=== PATIENT | female | born 1955 | race Caucasian/White ===

== ENCOUNTER 2018-08-21 01:06 | Inpatient (IN) | payer OTHER ==
[~2018-08-21] VITALS: Ht 167.6 cm; Wt 67.0 kg
[2018-08-21] VITALS (8 sets, daily range): BP systolic 131–152; BP diastolic 73–92; PULSE 63–79; RESP 18–20; Ht 167.6 cm; Wt 67.0 kg
[~2018-08-21 01:06] MED LIST: AMOX1TAB10 PO
[2018-08-21] MEDS ORDERED: SOD CHLORIDE 0.9% 1,000 ML IV STA (01:24)
--- NOTE | 2018-08-21 04:02 | ERD ---
ER Documentation Chief Complaint Chief Complaint pt reports r leg and are intermittently numb HPI 63-year-old female with no past medical history presenting with right upper extremity and right lower extremity numbness and heaviness that started at 12 AM. She states that she had multiple falls at home. Her symptoms are intermittent, currently resolved. She denies any associated headache, nausea, vomiting, vision disturbance. No chest pain or shortness of breath. No history of strokes. ROS All systems reviewed and are negative except as per history of present illness. Medications Home Meds Active Scripts Amox Tr/Potassium Clavulanate (Amox Tr-K Clv 875-125 Mg Tab) 1 Tab Tablet, 1 TAB PO BID for 10 Days, TAB Prov:MONAE MANLEY PA-C 01/20/16 Allergies Allergies: Coded Allergies: cephalexin (Verified Allergy, Unknown, 10/22/15) oxycodone (Verified Allergy, Unknown, 10/22/15) PMhx/Soc History of Surgery: Yes (BREAST IMPLANTS, TUBAL LIGATION, VEIN STRIPPING) Anesthesia Reaction: No Hx Neurological Disorder: No Hx Respiratory Disorders: Yes (asthma) Hx Cardiac Disorders: No Hx Psychiatric Problems: No Hx Miscellaneous Medical Probl: No Hx Alcohol Use: Yes (SOCIALLY) Hx Substance Use: No Hx Tobacco Use: Yes Smoking Status: Current every day smoker FmHx mother had strokes Physical Exam Vitals Vital Signs Date Temp Pulse Resp B/P (MAP) Pulse Ox O2 O2 Flow FiO2 Time Delivery Rate 08/21/18 80 20 140/81 99 Room Air 03:30 (100) 08/21/18 98.4 84 16 167/103 100 01:09 (124) Physical Exam Const: No acute distress Head: Atraumatic Eyes: Normal Conjunctiva, PERRLA, EOMI ENT: Normal External Ears, Nose and Mouth. Neck: Full range of motion. No meningismus. Resp: Clear to auscultation bilaterally Cardio: Regular rate and rhythm, no murmurs Abd: Soft, non tender, non distended. Normal bowel sounds Skin: No petechiae or rashes Back: No midline or flank tenderness Ext: No cyanosis, or edema Neur: Awake and alert, oriented x3, cranial nerves intact, strength and sensations intact in all 4 extremities. Normal gait. Psych: Normal Mood and Affect Result Diagram: 08/21/1812708/21/18127 Results 24 hrs Laboratory Tests Test 08/21/18 01:24 08/21/18 01:28 08/21/18 02:15 Bedside Glucose 96 mg/dL White Blood Count 5.3 10^3/ul Red Blood Count 4.59 10^6/ul Hemoglobin 13.5 g/dl Hematocrit 43.4 % Mean Corpuscular Volume 94.6 fl Mean Corpuscular Hemoglobin 29.4 pg Mean Corpuscular 31.1 g/dl Hemoglobin Concent Red Cell Distribution Width 12.6 % Platelet Count 202 10^3/UL Mean Platelet Volume 9.0 fl Immature Granulocytes % 0.400 % Neutrophils % 58.0 % Lymphocytes % 29.9 % Monocytes % 6.8 % Eosinophils % 4.3 % Basophils % 0.6 % Nucleated Red Blood Cells % 0.0 /100WBC Immature Granulocytes # 0.020 10^3/ul Neutrophils # 3.1 10^3/ul Lymphocytes # 1.6 10^3/ul Monocytes # 0.4 10^3/ul Eosinophils # 0.2 10^3/ul Basophils # 0.0 10^3/ul Nucleated Red Blood Cells # 0.0 10^3/ul Prothrombin Time 11.1 Sec Prothrombin Time Ratio 0.9 INR International Normalized Ratio 0.79 Activated Partial Thromboplast 25.3 Sec Time Sodium Level 141 mmol/L Potassium Level 4.2 mmol/L Chloride Level 104 mmol/L Carbon Dioxide Level 32 mmol/L Anion Gap 5 Blood Urea Nitrogen 19 mg/dl Creatinine 0.62 mg/dl Est Glomerular Filtrat Rate mL/min > 60 mL/min Glucose Level 97 mg/dl Calcium Level 9.7 mg/dl Troponin I < 0.012 ng/ml Triglycerides Level 163 mg/dl Cholesterol Level 218 mg/dl LDL Cholesterol, Calculated 83 mg/dl HDL Cholesterol 102 mg/dl Cholesterol/HDL Ratio 2.1 RATIO Ethyl Alcohol Level < 10.0 mg/dl Urine Opiates Screen Negative Urine Barbiturates Negative Urine Amphetamines Screen Negative Urine Benzodiazepines Screen Negative Urine Cocaine Screen Negative Urine Cannabinoids Negative Current Medications Medications Dose Sig/Araseli Start Time Status Last (Trade) Ordered Route PRN Stop Time Admin Dose Reason Admin Sodium 1,000 ml @ Q1H STAT 08/21/18 DC 08/21/18 Chloride 1,000 mls/hr IV 01:24 01:33 08/21/18 02:23 Procedures/MDM EMERGENT LABS AND DIAGNOSTIC STUDIES: Lab Results above were reviewed and interpreted by me. CBC: no anemia or evidence of infection BMP: No evidence of electrolyte abnormality, renal failure, hypoglycemia Troponin within normal limits, not indicative of cardiac ischemia Drug screen negative EtOH negative 12-lead EKG was interpreted by Kwame Olivera MD: Normal Sinus Rhythm with ventricular rate of 87 beats per minute Normal axis Normal intervals No acute ST or T wave changes suggestive of acute ischemia or STEMI. Radiology Results as interpreted by Radiology below were reviewed by Sukhi Olivera MD: CT head shows no acute abnormalities Chest x-ray shows no acute abnormalities Initial Nursing notes reviewed. Previous Medical Records requested via the Electronic Health Record. EMERGENCY DEPARTMENT COURSE / MEDICAL DECISION MAKING: Patient is presenting with intermittent right upper and right lower extremity numbness and weakness. Currently she is asymptomatic so code stroke was not activated. Vitals were notable for hypertension. CT head did not show any acute abnormalities. Labs did not show any significant abnormalities. I am however concerned about TIAs as the patient is a heavy smoker and has signs of hypertension and high cholesterol on workup. I feel she would benefit from adm ission for TIA and stroke workup. Accepting Care Team: Current data and ongoing care discussed. Time: Time of admission Primary Provider: Dr. Rolando Silver Diagnosis: Primary Impression: Right sided weakness Condition: Fair PAZ OLIVERA MD Aug 21, 2018 04:02
[2018-08-21] MEDS ORDERED: ACETAMINOPHEN 325 MG TAB PO PRN ×2 (04:30)
[2018-08-21] MEDS ORDERED: ONDANSETRON 4 MG INJ IV PRN ×2 (04:30)
[2018-08-21] MEDS ORDERED: ASPIRIN 81 MG TAB PO ONE (04:30)
[2018-08-21] MEDS ORDERED: NACL 0.9% 3 ML SYG IV SCH (04:30)
[2018-08-21] MEDS ORDERED: HYDROCODONE/APAP (5/325) TAB PO PRN (04:30)
[2018-08-21] MEDS ORDERED: LABETALOL HCL 20MG INJ IV PRN (04:30)
--- NOTE | 2018-08-21 04:37 | HP ---
Date/Time of Note Date/Time of Note DATE: 08/21/18 TIME: 04:37 Assessment/Plan VTE Prophylaxis Pharmacological prophylaxis: other Lines/Catheters IV Catheter Type (from Nrs): Saline Lock Assessment/Plan Hospital Course Objective Physical exam General: Patient is laying in bed and answers questions appropriately Mentation: Patient is alert and oriented 4, Head: Normocephalic atraumatic, facial droop on the right Eyes: EOMI, pupils reactive to light Neck: Supple, nontender, midline Respiratory: Clear to auscultation bilaterally Cardiovascular: regular rate, no obvious murmurs Gastrointestinal: non-tender to palpation, bowel sounds heard. Neurological: Moves all extremities spontaneously Skin: No new skin lesions Assessment and plan Right upper extremity and lower extremity numbness and heaviness -Possible TIA -Aspirin and statin for now -Neurology consulted, Dr. 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 Disposition -Neurology consulted, workup for TIA. Result Diagram: 08/21/188 08/21/18 0128 Results 24hrs Laboratory Tests Test 08/21/18 01:24 08/21/18 01:28 08/21/18 02:15 Bedside Glucose 96 White Blood Count 5.3 # Red Blood Count 4.59 Hemoglobin 13.5 Hematocrit 43.4 Mean Corpuscular Volume 94.6 Mean Corpuscular Hemoglobin 29.4 Mean Corpuscular Hemoglobin Concent 31.1 L Red Cell Distribution Width 12.6 Platelet Count 202 Mean Platelet Volume 9.0 # Immature Granulocytes % 0.400 Neutrophils % 58.0 Lymphocytes % 29.9 Monocytes % 6.8 Eosinophils % 4.3 Basophils % 0.6 Nucleated Red Blood Cells % 0.0 Immature Granulocytes # 0.020 Neutrophils # 3.1 Lymphocytes # 1.6 Monocytes # 0.4 Eosinophils # 0.2 Basophils # 0.0 Nucleated Red Blood Cells # 0.0 Prothrombin Time 11.1 L Prothrombin Time Ratio 0.9 INR International Normalized Ratio 0.79 Activated Partial Thromboplast Time 25.3 Sodium Level 141 Potassium Level 4.2 Chloride Level 104 Carbon Dioxide Level 32 H Anion Gap 5 Blood Urea Nitrogen 19 Creatinine 0.62 Est Glomerular Filtrat Rate mL/min > 60 Glucose Level 97 Calcium Level 9.7 Troponin I < 0.012 Triglycerides Level 163 H Cholesterol Level 218 H LDL Cholesterol, Calculated 83 HDL Cholesterol 102 H Cholesterol/HDL Ratio 2.1 Ethyl Alcohol Level < 10.0 H Urine Opiates Screen Negative Urine Barbiturates Negative Urine Amphetamines Screen Negative Urine Benzodiazepines Screen Negative Urine Cocaine Screen Negative Urine Cannabinoids Negative HPI/ROS Admit Date/Time Admit Date/Time Hx of Present Illness Patient is a female with past medical history significant for tobacco use who presents to [facility] for sudden onset right upper extremity and right lower extremity paresthesias and heaviness. Patient symptoms have completely resolved at this time. Patient states she woke up in the middle of the morning and instantly felt that her right side was heavy and numb. Patient initially assumed this was just some intermittent numbness from sleeping on her side however when she tried to walk to the bathroom she fell. Patient began to feel little bit better but soon after symptoms return. Patient then went to the ED and currently symptoms have fully resolved and not returned while in the ED. Currently patient's denies chest pain, shortness of breath, headache, abdominal pain, nausea, vomiting, leg pain, arm pain. Patient does have a baseline right facial droop from a severe Nunez palsy for many years ago. Patient does not complain of any facial abnormalities at this time. PMH/Family/Social Past Medical History Medications Current Medications Ondansetron HCl (Zofran Inj) 4 mg ER BRIDGE PRN IV NAUSEA/VOMITING; Start 08/21/18 at 04:30; Stop 08/22/18 at 04:29 Acetaminophen (Tylenol Tab) 650 mg ER BRIDGE PRN PO .MILD PAIN 1-3 OR TEMP; Start 08/21/18 at 04:30; Stop 08/22/18 at 04:29 Aspirin (Aspirin) 162 mg ONCE ONCE PO ; Start 08/21/18 at 04:30; Stop 08/21/18 at 04:31; Status UNV Aspirin (Aspirin) 81 mg DAILY PO ; Start 08/22/18 at 09:00; Status UNV Sodium Chloride 1,000 ml @ 40 mls/hr Q24H IV ; Start 08/21/18 at 04:09; Stop 08/22/18 at 05:08; Status UNV IV Flush (NS 3 ml) 3 ml PER PROTOCOL IV ; Start 08/21/18 at 04:30; Status UNV Ondansetron HCl (Zofran Inj) 4 mg Q6H PRN IV NAUSEA/VOMITING; Start 08/21/18 at 04:30; Status UNV Acetaminophen (Tylenol Tab) 650 mg Q6H PRN PO .PAIN 1-3 OR TEMP; Start 08/21/18 at 04:30; Status UNV Acetaminophen/ Hydrocodone Bitart ([place] (5/325)) 1 tab Q6H PRN PO .PAIN 4-6; Start 08/21/18 at 04:30; Status UNV Coded Allergies: cephalexin (Verified Allergy, Unknown, 10/22/15) oxycodone (Verified Allergy, Unknown, 10/22/15) Social History Smoking Status: Current every day smoker Exam/Review of Systems Vital Signs Vitals Vital Signs Date Temp Pulse Resp B/P (MAP) Pulse Ox O2 O2 Flow FiO2 Time Delivery Rate 08/21/18 98.4 84 16 167/103 100 01:09 (124) ANGEL IVAN Aug 21, 2018 04:37
[2018-08-21] MEDS: SOD CHLORIDE 0.9% 1,000 ML IV SCH (05:32)
--- NOTE | 2018-08-21 12:30 | PN ---
Date/Time of Note Date/Time of Note DATE: 08/21/18 TIME: 12:28 Assessment/Plan VTE Prophylaxis Risk score (from Ns)>0 risk: 2 SCD applied (from [facility]): No SCD contraindicated: low risk/ambulating Pharmacological prophylaxis: NA/contraindicated, LMWH Pharm contraindication: low risk/ambulating Lines/Catheters [facility] Saline Lock Assessment/Plan Hospital Course Assessment plan 1. Suspected TIA, rule out stroke. MRI pending stable follow-up on carotid and echo 2. Tobacco abuse status post counseling offered patch 3. Dyslipidemia, optimize medical therapy with statin repeat cholesterol 1 6 weeks 4. Chronic venous insufficiency insufficiency stasis varicose veins 5. Chronic Nunez's palsy right Subjective: Intermittent right sided numbness heaviness weakness. No loss of speech vision dysphagia dysarthria objective: Vital signs stable sinus rhythm Physical exam No pallor adenopathy mild right droop no carotid bruits Regular no murmur gallop Clear Benign no abdominal bruits No edema Neuro: CN II-XII grossly intact, except for right-sided Nunez's palsy Motor: 5 x 5 x 4 Sensory/reflexes: Symmetrical bilaterally Babinski's: None Cerebellar function test: Finger-nose symmetrical. No dysdiadochokinesis but possibly somewhat easier on the left. Result Diagram: 08/21/188 08/21/18 0128 Results 24hrs Laboratory Tests Test 08/21/18 01:24 08/21/18 01:28 08/21/18 02:15 Bedside Glucose 96 White Blood Count 5.3 # Red Blood Count 4.59 Hemoglobin 13.5 Hematocrit 43.4 Mean Corpuscular Volume 94.6 Mean Corpuscular Hemoglobin 29.4 Mean Corpuscular Hemoglobin Concent 31.1 L Red Cell Distribution Width 12.6 Platelet Count 202 Mean Platelet Volume 9.0 # Immature Granulocytes % 0.400 Neutrophils % 58.0 Lymphocytes % 29.9 Monocytes % 6.8 Eosinophils % 4.3 Basophils % 0.6 Nucleated Red Blood Cells % 0.0 Immature Granulocytes # 0.020 Neutrophils # 3.1 Lymphocytes # 1.6 Monocytes # 0.4 Eosinophils # 0.2 Basophils # 0.0 Nucleated Red Blood Cells # 0.0 Prothrombin Time 11.1 L Prothrombin Time Ratio 0.9 INR International Normalized Ratio 0.79 Activated Partial Thromboplast Time 25.3 Sodium Level 141 Potassium Level 4.2 Chloride Level 104 Carbon Dioxide Level 32 H Anion Gap 5 Blood Urea Nitrogen 19 Creatinine 0.62 Est Glomerular Filtrat Rate mL/min > 60 Glucose Level 97 Calcium Level 9.7 Troponin I < 0.012 Triglycerides Level 163 H Cholesterol Level 218 H LDL Cholesterol, Calculated 83 HDL Cholesterol 102 H Cholesterol/HDL Ratio 2.1 Ethyl Alcohol Level < 10.0 H Urine Opiates Screen Negative Urine Barbiturates Negative Urine Amphetamines Screen Negative Urine Benzodiazepines Screen Negative Urine Cocaine Screen Negative Urine Cannabinoids Negative Exam/Review of Systems Exam Vitals Vital Signs Date Temp Pulse Resp B/P (MAP) Pulse Ox O2 O2 Flow FiO2 Time Delivery Rate 08/21/18 72 12:10 08/21/18 98.1 19 145/73 96 11:56 (97) 08/21/18 Room Air 04:36 Intake and Output 08/20/18 08/20/18 08/21/18 1515:00 23:00 07:00 IntakeIntake Total 300 ml BalanceBalance 300 ml Results Results 24hrs Laboratory Tests Test 08/21/18 01:24 08/21/18 01:28 08/21/18 02:15 Bedside Glucose 96 White Blood Count 5.3 # Red Blood Count 4.59 Hemoglobin 13.5 Hematocrit 43.4 Mean Corpuscular Volume 94.6 Mean Corpuscular Hemoglobin 29.4 Mean Corpuscular Hemoglobin Concent 31.1 L Red Cell Distribution Width 12.6 Platelet Count 202 Mean Platelet Volume 9.0 # Immature Granulocytes % 0.400 Neutrophils % 58.0 Lymphocytes % 29.9 Monocytes % 6.8 Eosinophils % 4.3 Basophils % 0.6 Nucleated Red Blood Cells % 0.0 Immature Granulocytes # 0.020 Neutrophils # 3.1 Lymphocytes # 1.6 Monocytes # 0.4 Eosinophils # 0.2 Basophils # 0.0 Nucleated Red Blood Cells # 0.0 Prothrombin Time 11.1 L Prothrombin Time Ratio 0.9 INR International Normalized Ratio 0.79 Activated Partial Thromboplast Time 25.3 Sodium Level 141 Potassium Level 4.2 Chloride Level 104 Carbon Dioxide Level 32 H Anion Gap 5 Blood Urea Nitrogen 19 Creatinine 0.62 Est Glomerular Filtrat Rate mL/min > 60 Glucose Level 97 Calcium Level 9.7 Troponin I < 0.012 Triglycerides Level 163 H Cholesterol Level 218 H LDL Cholesterol, Calculated 83 HDL Cholesterol 102 H Cholesterol/HDL Ratio 2.1 Ethyl Alcohol Level < 10.0 H Urine Opiates Screen Negative Urine Barbiturates Negative Urine Amphetamines Screen Negative Urine Benzodiazepines Screen Negative Urine Cocaine Screen Negative Urine Cannabinoids Negative Medications Medication Current Medications Ondansetron HCl (Zofran Inj) 4 mg ER BRIDGE PRN IV NAUSEA/VOMITING; Start 08/21/18 at 04:30; Stop 08/22/18 at 04:29 Acetaminophen (Tylenol Tab) 650 mg ER BRIDGE PRN PO .MILD PAIN 1-3 OR TEMP; Start 08/21/18 at 04:30; Stop 08/22/18 at 04:29 Aspirin (Aspirin) 81 mg DAILY PO ; Start 08/22/18 at 09:00 Sodium Chloride 1,000 ml @ 40 mls/hr Q24H IV Last administered on 08/21/18at 05:32; Admin Dose 40 MLS/HR; Start 08/21/18 at 04:09; Stop 08/22/18 at 05:08 IV Flush (NS 3 ml) 3 ml PER PROTOCOL IV ; Start 08/21/18 at 04:30 Ondansetron HCl (Zofran Inj) 4 mg Q6H PRN IV NAUSEA/VOMITING; Start 08/21/18 at 04:30 Acetaminophen (Tylenol Tab) 650 mg Q6H PRN PO .PAIN 1-3 OR TEMP; Start 08/21/18 at 04:30 Acetaminophen/ Hydrocodone Bitart ([place] (5/325)) 1 tab Q6H PRN PO .PAIN 4-6; Start 08/21/18 at 04:30 Atorvastatin Calcium (Lipitor) 80 mg HS PO ; Start 08/21/18 at 21:00 Labetalol HCl (Labetalol) 10 mg Q4H PRN IV sbp> 160; Start 08/21/18 at 04:30 Influenza Virus Vaccine Quadrival (Fluzone) 0.5 ml ONCE ONCE IM* ; Start 08/22/18 at 10:00; Stop 08/22/18 at 10:01 BHAVIN WRIGHT MD Aug 21, 2018 12:30
--- NOTE | 2018-08-21 12:33 | CONS ---
Assessment/Plan Assessment/Plan Hospital Course 63 F smoker, who presents for evaluation of waxing and waning right arm and leg numbness and vertigo...for which neurology is consulted.. Most ominously concerning for stroke.. Head CT is unrevealing.. P: Await MRI brain to evaluate for acute ischemia Agree w/ asa/statin daily for now PT/OT/ST as necessary Permissive HTN for now, pending the above Other medical management and supportive care per primary Will follow clinically to suggest additional neurologic studies as necessary Consultation Date/Type/Reason Admit Date/Time Type of Consult Neurology Reason for Consultation R arm and leg numbness, dizziness Requesting Provider: ANGEL IVAN Date/Time of Note DATE: 08/21/18 TIME: 12:29 Hx of Present Illness Patient is a female with past medical history significant for tobacco use who presents to [facility] [place] for sudden onset right upper extremity and right lower extremity paresthesias and heaviness. Patient symptoms have completely resolved at this time. Patient states she woke up in the middle of the morning and instantly felt that her right side was heavy and numb. Patient initially assumed this was just some intermittent numbness from sleeping on her side however when she tried to walk to the bathroom she fell. Patient began to feel little bit better but soon after symptoms return. Patient then went to the ED and currently symptoms have fully resolved and not returned while in the ED. Currently patient's denies chest pain, shortness of breath, headache, abdominal pain, nausea, vomiting, leg pain, arm pain. Patient does have a baseline right facial droop from a severe Nunez palsy for many years ago. Patient does not complain of any facial abnormalities at this time. 12 PT ROS ow neg Exam/Review of Systems Exam Vitals Vital Signs Date Temp Pulse Resp B/P (MAP) Pulse Ox O2 O2 Flow FiO2 Time Delivery Rate 08/21/18 72 12:10 08/21/18 98.1 145/73 96 11:56 (97) 08/21/18 Room Air 04:36 Intake and Output 08/20/18 08/20/18 08/21/18 1414:59 22:59 06:59 IntakeIntake Total 300 ml BalanceBalance 300 ml Exam PE: Gen Appearance: No Apparent Distress HEENT: Normocephalic Cardiovascular: Regular rate Lungs: Clear bilaterally Abdomen: Soft Extremities: Dry NE: The patient was alert and oriented. Language was normal. Fund of knowledge was normal. Pupils were equal and reactive to light. There was no afferent pupillary defect. Visual cross were normal. Funduscopic examination was limited. Extra-ocular movements were full. Ptosis was absent. There was no nystagmus. Facial sensation was normal. Face was symmetric with normal strength. Hearing was intact. Palate movements were normal. Neck strength was normal. There was normal tongue bulk and speed of movement. Tone was normal. Muscle bulk was normal. I did not see fasciculations. R leg was mildly weak. Vibration sensation was symmetric.. Temperature and pinprick sensation was normal. Rapid alternating movements were normal. There was no dysmetria. There was no intention tremor. Gait was deferred due to bedrest. Arm and leg reflexes were symmetric. Gambino's sign was absent. Plantar responses were flexor. Results Result Diagram: 08/21/18 0128 08/21/18 0128 Results 24hrs Laboratory Tests Test 08/21/18 01:24 08/21/18 01:28 08/21/18 02:15 Bedside Glucose 96 White Blood Count 5.3 # Red Blood Count 4.59 Hemoglobin 13.5 Hematocrit 43.4 Mean Corpuscular Volume 94.6 Mean Corpuscular Hemoglobin 29.4 Mean Corpuscular Hemoglobin Concent 31.1 L Red Cell Distribution Width 12.6 Platelet Count 202 Mean Platelet Volume 9.0 # Immature Granulocytes % 0.400 Neutrophils % 58.0 Lymphocytes % 29.9 Monocytes % 6.8 Eosinophils % 4.3 Basophils % 0.6 Nucleated Red Blood Cells % 0.0 Immature Granulocytes # 0.020 Neutrophils # 3.1 Lymphocytes # 1.6 Monocytes # 0.4 Eosinophils # 0.2 Basophils # 0.0 Nucleated Red Blood Cells # 0.0 Prothrombin Time 11.1 L Prothrombin Time Ratio 0.9 INR International Normalized Ratio 0.79 Activated Partial Thromboplast Time 25.3 Sodium Level 141 Potassium Level 4.2 Chloride Level 104 Carbon Dioxide Level 32 H Anion Gap 5 Blood Urea Nitrogen 19 Creatinine 0.62 Est Glomerular Filtrat Rate mL/min > 60 Glucose Level 97 Calcium Level 9.7 Troponin I < 0.012 Triglycerides Level 163 H Cholesterol Level 218 H LDL Cholesterol, Calculated 83 HDL Cholesterol 102 H Cholesterol/HDL Ratio 2.1 Ethyl Alcohol Level < 10.0 H Urine Opiates Screen Negative Urine Barbiturates Negative Urine Amphetamines Screen Negative Urine Benzodiazepines Screen Negative Urine Cocaine Screen Negative Urine Cannabinoids Negative Medications Medication Current Medications Ondansetron HCl (Zofran Inj) 4 mg ER BRIDGE PRN IV NAUSEA/VOMITING; Start 08/21/18 at 04:30; Stop 08/22/18 at 04:29 Acetaminophen (Tylenol Tab) 650 mg ER BRIDGE PRN PO .MILD PAIN 1-3 OR TEMP; Start 08/21/18 at 04:30; Stop 08/22/18 at 04:29 Aspirin (Aspirin) 81 mg DAILY PO ; Start 08/22/18 at 09:00 Sodium Chloride 1,000 ml @ 40 mls/hr Q24H IV Last administered on 08/21/18at 05:32; Admin Dose 40 MLS/HR; Start 08/21/18 at 04:09; Stop 08/22/18 at 05:08 IV Flush (NS 3 ml) 3 ml PER PROTOCOL IV ; Start 08/21/18 at 04:30 Ondansetron HCl (Zofran Inj) 4 mg Q6H PRN IV NAUSEA/VOMITING; Start 08/21/18 at 04:30 Acetaminophen (Tylenol Tab) 650 mg Q6H PRN PO .PAIN 1-3 OR TEMP; Start 08/21/18 at 04:30 Acetaminophen/ Hydrocodone Bitart ([place] (5/325)) 1 tab Q6H PRN PO .PAIN 4-6; Start 08/21/18 at 04:30 Atorvastatin Calcium (Lipitor) 80 mg HS PO ; Start 08/21/18 at 21:00 Labetalol HCl (Labetalol) 10 mg Q4H PRN IV sbp> 160; Start 08/21/18 at 04:30 Influenza Virus Vaccine Quadrival (Fluzone) 0.5 ml ONCE ONCE IM* ; Start 08/22/18 at 10:00; Stop 08/22/18 at 10:01 Past Medical History reviewed Home Meds Active Scripts Amox Tr/Potassium Clavulanate (Amox Tr-K Clv 875-125 Mg Tab) 1 Tab Tablet, 1 TAB PO BID for 10 Days, TAB Prov:MONAE MANLEY PA-C 01/20/16 Medications Current Medications Ondansetron HCl (Zofran Inj) 4 mg ER BRIDGE PRN IV NAUSEA/VOMITING; Start 08/21/18 at 04:30; Stop 08/22/18 at 04:29 Acetaminophen (Tylenol Tab) 650 mg ER BRIDGE PRN PO .MILD PAIN 1-3 OR TEMP; Start 08/21/18 at 04:30; Stop 08/22/18 at 04:29 Aspirin (Aspirin) 81 mg DAILY PO ; Start 08/22/18 at 09:00 Sodium Chloride 1,000 ml @ 40 mls/hr Q24H IV Last administered on 08/21/18at 05:32; Admin Dose 40 MLS/HR; Start 08/21/18 at 04:09; Stop 08/22/18 at 05:08 IV Flush (NS 3 ml) 3 ml PER PROTOCOL IV ; Start 08/21/18 at 04:30 Ondansetron HCl (Zofran Inj) 4 mg Q6H PRN IV NAUSEA/VOMITING; Start 08/21/18 at 04:30 Acetaminophen (Tylenol Tab) 650 mg Q6H PRN PO .PAIN 1-3 OR TEMP; Start 08/21/18 at 04:30 Acetaminophen/ Hydrocodone Bitart ([place] (5/325)) 1 tab Q6H PRN PO .PAIN 4-6; Start 08/21/18 at 04:30 Atorvastatin Calcium (Lipitor) 80 mg HS PO ; Start 08/21/18 at 21:00 Labetalol HCl (Labetalol) 10 mg Q4H PRN IV sbp> 160; Start 08/21/18 at 04:30 Influenza Virus Vaccine Quadrival (Fluzone) 0.5 ml ONCE ONCE IM* ; Start 08/22/18 at 10:00; Stop 08/22/18 at 10:01 Allergies: Coded Allergies: cephalexin (Verified Allergy, Unknown, 10/22/15) oxycodone (Verified Allergy, Unknown, 10/22/15) Past Surgical History reviewed Social History Smoking Status: Current every day smoker TIFFANIE SANTAMARIA Aug 21, 2018 12:33
[2018-08-21] MEDS: NICOTINE (14 MG/24 HR) PATCH TRANSDERM SCH (14:19)
[2018-08-21] MEDS: ATORVASTATIN 80 MG TAB PO SCH (20:59)
[2018-08-22] VITALS (10 sets, daily range): BP systolic 126–152; BP diastolic 76–90; PULSE 64–79; RESP 18–20
[2018-08-22] MEDS: SOD CHLORIDE 0.9% 1,000 ML IV SCH (05:40)
[2018-08-22] MEDS: ASPIRIN 81 MG TAB PO SCH (08:03)
[2018-08-22] MEDS: NICOTINE (14 MG/24 HR) PATCH TRANSDERM SCH (08:04)
[2018-08-22] MEDS: ENOXAPARIN 40 MG/0.4 ML SYG SC SCH (08:33)
--- NOTE | 2018-08-22 11:16 | PN ---
Date/Time of Note Date/Time of Note DATE: 08/22/18 TIME: 11:16 Assessment/Plan VTE Prophylaxis Risk score (from Ns)>0 risk: 2 SCD applied (from Ns): Yes Pharmacological prophylaxis: LMWH Lines/Catheters IV C[facility]ter Type [facility]from [facility] Saline Lock Assessment/Plan Hospital Course SUBJECTIVE: Complains of right lower extremity weakness. OBJECTIVE: Physical Exam General: Adequately build 63 year-old female lying in bed in no apparent distress. HEENT: Normocephalic, atraumatic. Eyes: Anicteric sclerae, conjunctivae clear. ENT: Nasal septum midline, oral mucosa moist. Neck supple, no JVD noticed. Respiratory: Bilaterally clear breath sounds. No use of accessory muscles of respiration. No adventitious breath sounds. Cardiovascular: S1, S2 heard. Regular rate and rhythm. Abdomen: Soft, nontender, and nondistended. Bowel sounds positive in all 4 quadrants. Genitourinary: Deferred. Extremities: No cyanosis, no clubbing. Bilateral lower extremity varicosities. Peripheral pulses palpable. Neurologic: The patient is awake, alert, and oriented. Right lower extremity weaker than the left. Skin: Normal skin turgor. No skin rashes. Labs & Vitals per chart ASSESSMENT & PLAN 63-year-old female with comorbidities including nicotine use and dyslipidemia. The patient came to the emergency room with sudden onset of right upper extremity and right lower extremity paresthesias and heaviness. The patient was admitted to inpatient setting for further treatment and evaluation 1. Right upper and lower extremity paresthesias -Brain CT negative. -Brain MRA negative. -On aspirin and statins. -Pending brain MRI. -Being followed by neurology. -PT/OT evaluation. 2. Dyslipidemia. -Continue statins. 3. Nicotine use. -Cessation advised. -Nicotine patch. 4. Chronic right-sided Nunez's palsy. 5. Fluids, electrolytes, and nutrition. -Low-cholesterol diet. 6. DVT prophylaxis -Subcutaneous Lovenox. 7. Plan. -Continue aspirin and statins. -Await brain MRI. The patient was seen in collaboration with Dr. Montoya. Result Diagram: 08/22/1828 08/22/18527 Results 24hrs Laboratory Tests Test 08/22/18 05:28 08/22/18 05:29 08/22/18 09:13 White Blood Count 4.2 #L Red Blood Count 4.12 L Hemoglobin 12.1 Hematocrit 39.2 Mean Corpuscular Volume 95.1 Mean Corpuscular Hemoglobin 29.4 Mean Corpuscular Hemoglobin Concent 30.9 L Red Cell Distribution Width 12.5 Platelet Count 184 Mean Platelet Volume 9.2 Immature Granulocytes % 0.200 Neutrophils % 49.7 Lymphocytes % 34.9 Monocytes % 7.6 Eosinophils % 6.9 Basophils % 0.7 Nucleated Red Blood Cells % 0.0 Immature Granulocytes # 0.010 Neutrophils # 2.1 Lymphocytes # 1.5 Monocytes # 0.3 Eosinophils # 0.3 Basophils # 0.0 Nucleated Red Blood Cells # 0.0 Sodium Level 142 Potassium Level 4.1 Chloride Level 102 Carbon Dioxide Level 28 Anion Gap 12 # Blood Urea Nitrogen 15 Creatinine 0.58 Est Glomerular Filtrat Rate mL/min > 60 Glucose Level 86 Hemoglobin A1c 5.2 Calcium Level 9.1 Total Bilirubin 0.1 L Direct Bilirubin 0.00 Indirect Bilirubin 0.1 Aspartate Amino Transf (AST/SGOT) 16 Alanine Aminotransferase (ALT/SGPT) 19 Alkaline Phosphatase 50 Total Protein 6.1 Albumin 3.7 Globulin 2.40 Albumin/Globulin Ratio 1.54 Thyroid Stimulating Hormone (TSH) 2.930 Magnesium Level 1.9 Lab Scanned Report LAB Exam/Review of Systems Exam Vitals Vital Signs Date Temp Pulse Resp B/P (MAP) Pulse Ox O2 O2 Flow FiO2 Time Delivery Rate 08/22/18 79 08:01 08/22/18 98.0 20 152/90 94 Room Air 07:54 (110) Intake and Output 08/21/18 08/21/18 08/22/18 1515:00 23:00 07:00 IntakeIntake Total 1200 ml 1400 ml BalanceBalance 1200 ml 1400 ml Results Results 24hrs Laboratory Tests Test 08/22/18 05:28 08/22/18 05:29 08/22/18 09:13 White Blood Count 4.2 #L Red Blood Count 4.12 L Hemoglobin 12.1 Hematocrit 39.2 Mean Corpuscular Volume 95.1 Mean Corpuscular Hemoglobin 29.4 Mean Corpuscular Hemoglobin Concent 30.9 L Red Cell Distribution Width 12.5 Platelet Count 184 Mean Platelet Volume 9.2 Immature Granulocytes % 0.200 Neutrophils % 49.7 Lymphocytes % 34.9 Monocytes % 7.6 Eosinophils % 6.9 Basophils % 0.7 Nucleated Red Blood Cells % 0.0 Immature Granulocytes # 0.010 Neutrophils # 2.1 Lymphocytes # 1.5 Monocytes # 0.3 Eosinophils # 0.3 Basophils # 0.0 Nucleated Red Blood Cells # 0.0 Sodium Level 142 Potassium Level 4.1 Chloride Level 102 Carbon Dioxide Level 28 Anion Gap 12 # Blood Urea Nitrogen 15 Creatinine 0.58 Est Glomerular Filtrat Rate mL/min > 60 Glucose Level 86 Hemoglobin A1c 5.2 Calcium Level 9.1 Total Bilirubin 0.1 L Direct Bilirubin 0.00 Indirect Bilirubin 0.1 Aspartate Amino Transf (AST/SGOT) 16 Alanine Aminotransferase (ALT/SGPT) 19 Alkaline Phosphatase 50 Total Protein 6.1 Albumin 3.7 Globulin 2.40 Albumin/Globulin Ratio 1.54 Thyroid Stimulating Hormone (TSH) 2.930 Magnesium Level 1.9 Lab Scanned Report LAB Medications Medication Current Medications Aspirin (Aspirin) 81 mg DAILY PO Last administered on 08/22/18at 08:03; Admin Dose 81 MG; Start 08/22/18 at 09:00 IV Flush (NS 3 ml) 3 ml PER PROTOCOL IV ; Start 08/21/18 at 04:30 Ondansetron HCl (Zofran Inj) 4 mg Q6H PRN IV NAUSEA/VOMITING; Start 08/21/18 at 04:30 Acetaminophen (Tylenol Tab) 650 mg Q6H PRN PO .PAIN 1-3 OR TEMP; Start 08/21/18 at 04:30 Acetaminophen/ Hydrocodone Bitart ([place] (5/325)) 1 tab Q6H PRN PO .PAIN 4-6; Start 08/21/18 at 04:30 Atorvastatin Calcium (Lipitor) 80 mg HS PO Last administered on 08/21/18at 20:59; Admin Dose 80 MG; Start 08/21/18 at 21:00 Labetalol HCl (Labetalol) 10 mg Q4H PRN IV sbp> 160; Start 08/21/18 at 04:30 Enoxaparin Sodium (Lovenox) 40 mg DAILY SC Last administered on 08/22/18at 08:33; Admin Dose 40 MG; Start 08/22/18 at 09:00 Nicotine (Nicoderm 14 Mg/ 24hr) 1 patch DAILY TRANSDERM Last administered on 08/22/18at 08:04; Admin Dose 1 PATCH; Start 08/21/18 at 13:30 PAUL MURDOCK NPb 18, 2019 11:16
--- NOTE | 2018-08-22 14:55 | CONS ---
Assessment/Plan Assessment/Plan Hospital Course 63 F smoker, who presents for evaluation of waxing and waning right arm and leg numbness and vertigo...for which neurology is consulted.. Most ominously concerning for stroke.. Head CT is unrevealing.. MRA H/N is unrevealing. P: Await MRI brain to evaluate for acute ischemia Agree w/ asa/statin daily for now PT/OT/ST as necessary Permissive HTN for now, pending the above Other medical management and supportive care per primary Will follow clinically to suggest additional neurologic studies as necessary Consultation Date/Type/Reason Admit Date/Time Aug 21, 2018 at 04:01 Type of Consult Neurology Requesting Provider: ANGEL IVAN Date/Time of Note DATE: 08/22/18 TIME: 14:54 24 HR Interval Summary Free Text/Dictation Continues telemetry monitoring. Pt states that her L sided numbness/tingling has improved today. Awaiting MRI brain Exam Vital Signs Vitals Vital Signs Date Temp Pulse Resp B/P (MAP) Pulse Ox O2 O2 Flow FiO2 Time Delivery Rate 08/22/18 64 12:01 08/22/18 98.4 20 141/88 99 Room Air 11:34 (105) Intake and Output 08/21/18 08/21/18 08/22/18 1515:00 23:00 07:00 IntakeIntake Total 1200 ml 1400 ml BalanceBalance 1200 ml 1400 ml Exam PE: Gen Appearance: No Apparent Distress HEENT: Normocephalic Cardiovascular: Regular rate Lungs: Clear bilaterally Abdomen: Soft Extremities: Dry NE: The patient was alert and oriented. Language was normal. Fund of knowledge was normal. Pupils were equal and reactive to light. There was no afferent pupillary defect. Visual cross were normal. Funduscopic examination was limited. Extra-ocular mo vements were full. Ptosis was absent. There was no nystagmus. Facial sensation was normal. Face was symmetric with normal strength. Hearing was intact. Palate movements were normal. Neck strength was normal. There was normal tongue bulk and speed of movement. Tone was normal. Muscle bulk was normal. I did not see fasciculations. R leg was mildly weak. Vibration sensation was symmetric.. Temperature and pinprick sensation was normal. Rapid alternating movements were normal. There was no dysmetria. There was no intention tremor. Gait was deferred due to bedrest. Arm and leg reflexes were symmetric. Gambino's sign was absent. Plantar responses were flexor. JAYMIE BRIZUELA NP Aug 22, 2018 14:54
[2018-08-22] MEDS: ATORVASTATIN 80 MG TAB PO SCH (20:41)
[2018-08-22] MEDS ORDERED: POLYETHYLENE GLYCOL 17 GM PACKET PO PRN (21:00)
[2018-08-22] MEDS ORDERED: DOCUSATE SODIUM 100 MG CAP PO PRN (21:00)
[2018-08-22] MEDS ORDERED: LORAZEPAM 2 MG INJ IV PRN (22:30)
[2018-08-23] VITALS (7 sets, daily range): BP systolic 124–132; BP diastolic 76–89; PULSE 68–84; RESP 16–20
[2018-08-23] MEDS: ASPIRIN 81 MG TAB PO SCH (07:54)
--- NOTE | 2018-08-23 07:54 | RADRPT ---
Echocardiogram Report Patient Name: BELÉN JESUSPatient ID: [id number] : 1955 (63y 2m)Study Date: 08/22/2018 8:38:39 AM Gender: FAccession #: [id number] Tech: Misael Brooke [facility] Location: [facility] Ref.Physician: ANGEL IVAN Height(Cm): BSA: Weight(Kg): Quality: AdequateAccount #: Procedures: Echocardiographic Report: Transthoracic echocardiogram with complete 2D, M-Mode, and doppler examination. Indications: Cerebrovascular Accident. Measurements: 2D/M Mode Doppler Measurement Value Normal Range Measurement Value Normal Range LVIDd 2D 4.0 [ 3.8 - 5.2 ] cm AV Peak Sancho 1.5 [ 100.0 - 170.0 ] cm/sec LVIDs 2D 2.5 [ 2.2 - 3.5 ] cm AV Peak PG 9.0 [ 2.0 - 9.0 ] mmHg LVPWd 2D 1.0 [ 0.6 - 0.9 ] cm LVOT Peak Sancho 1.2 [ 70.0 - 110.0 ] cm/sec IVSd 2D 1.2 [ 0.6 - 0.9 ] cm LVOT Peak PG 5.0 [ 2.0 - 6.0 ] mmHg AoR Diam 2D 2.2 [ 2.3 - 3.1 ] cm MV E Peak Sancho 1.0 [ 60.0 - 130.0 ] cm/sec EDV 2D 69.2 [ 46.0 - 106.0 ] ml MV A Peak Sancho 0.8 [ 100.0 - 120.0 ] cm/sec ESV 2D 21.2 [ 14.0 - 42.0 ] ml MV E/A 1.2 [ 0.8 - 1.5 ] ratio EF 2D 69.4 [ 54.0 - 74.0 ] percent MV Decel Time 197 [ 104 - 258 ] msec LA Dimen 2D 3.3 [ 2.7 - 3.8 ] cm Lat E` Sancho 0.1 [ 10.0 - 15.0 ] cm/sec Lateral E/E` 12.7 [ 1.0 - 2.0 ] ratio Med E` Sancho 0.1 cm/sec MV E/A 1.2 [ 0.8 - 1.5 ] ratio TR Peak Sancho 2.9 [ 100.0 - 280.0 ] cm/sec TR Peak PG 33.0 mmHg RVSP 43.0 [ 10.0 - 36.0 ] mmHg Findings: Left Ventricle: Normal left ventricular systolic function. Normal left ventricular cavity size. Mild asymmetric septal hypertrophy. Ejection fraction is visually estimated at 65 %. Tissue Doppler/Mitral Doppler indices are consistent with impaired relaxation (Stage I diastolic dysfunction). Right Ventricle: Normal right ventricular size. Normal right ventricular systolic function. Left Atrium: The left atrium is normal in size. Right Atrium: The right atrium is normal in size. Mitral Valve: Mild mitral leaflet calcification. Mild mitral annular calcification. Trace mitral regurgitation. Aortic Valve: No significant aortic stenosis or insufficiency. Aortic cusps appear mildly calcified. Tricuspid Valve: Normal appearance of the tricuspid valve. Estimated peak PA systolic pressure 43 mmHg. There is mild tricuspid regurgitation. Pulmonic Valve: Pulmonic valve not well visualized. Pericardium: Normal pericardium with no significant pericardial effusion. Aorta: Normal aortic root. IVC: Normal size and normal respiratory collapse consistent with normal right atrial pressure. Conclusions: Normal left ventricular systolic function. Normal left ventricular cavity size. Mild asymmetric septal hypertrophy. Ejection fraction is visually estimated at 65 %. Tissue Doppler/Mitral Doppler indices are consistent with impaired relaxation (Stage I diastolic dysfunction). Mild mitral leaflet calcification. Mild mitral annular calcification. Trace mitral regurgitation. No significant aortic stenosis or insufficiency. Aortic cusps appear mildly calcified. Normal appearance of the tricuspid valve. Estimated peak PA systolic pressure 43 mmHg. There is mild tricuspid regurgitation. Electronically Signed By: Gonsalo Oro 2018-08-23 07:53:43 PST
[2018-08-23] MEDS: NICOTINE (14 MG/24 HR) PATCH TRANSDERM SCH (07:55)
[2018-08-23] MEDS: ENOXAPARIN 40 MG/0.4 ML SYG SC SCH (08:01)
[2018-08-23] MEDS ORDERED: ASPI-831 PO (12:44)
[2018-08-23] MEDS ORDERED: ATOR-2 PO (12:44)
[2018-08-23] MEDS ORDERED: NICO-544 TD (12:50)
--- NOTE | 2018-08-23 12:53 | PDOCDIS ---
Discharge Instructions CONDITION [id number] Patient Condition: [id number] Stable HOME CARE INSTRUCTIONS: [id number] Diet Instructions: [id number] Low Fat /Cholesterol FOLLOW UP/APPOINTMENTS Follow-up Plan Tamir Veliz MD Specialty: Internal Medicine Office Address: [address] [place] [address] [place], [place] [id number] Office OTHER ORDERS: Other Orders: 1. Take medications as per prescription. 2. Follow a low-cholesterol diet. 3. Abstain from using tobacco. 4. Follow-up with your primary care physician in 2 weeks. If you do not have a primary care physician, please call Dr. Tamir Veliz's office. 5. Please go to the nearest emergency room if you have any sudden onset focal weakness, speech disturbances, or any other unusual signs/symptoms. PAUL MURDOCK NP Aug 23, 2018 12:53
--- NOTE | 2018-08-23 17:00 | CONS ---
Assessment/Plan Assessment/Plan Hospital Course 63 F smoker, who presents for evaluation of waxing and waning right arm and leg numbness and vertigo...for which neurology is consulted.. MRI brain is notable for an acute L thalamic lacunar infarct. MRA H/N is unrevealing. Echo is unrevealing. P: Add ESR, RPR Cont asa/statin daily for secondary stroke prevention BP and other medical management and supportive care per primary PT/OT/ST as necessary Encourage tobacco cessation Will follow clinically to suggest additional neurologic studies as necessary Consultation Date/Type/Reason Admit Date/Time Aug 21, 2018 at 04:01 Type of Consult Neurology Requesting Provider: ANGEL IVAN Date/Time of Note DATE: 08/23/18 TIME: 17:00 24 HR Interval Summary Free Text/Dictation Continues telemetry monitoring. S/p MRI brain. Pt states that her L sided numbness has completely resolved. Exam Vital Signs Vitals Vital Signs Date Temp Pulse Resp B/P (MAP) Pulse Ox O2 O2 Flow FiO2 Time Delivery Rate 08/23/18 84 16:01 08/23/18 97.6 20 132/89 98 11:54 (103) 08/23/18 Room Air 04:00 Intake and Output 08/22/18 08/22/18 08/23/18 1515:00 23:00 07:00 IntakeIntake Total 1080 ml 700 ml BalanceBalance 1080 ml 700 ml Exam PE: Gen Appearance: No Apparent Distress HEENT: Normocephalic Cardiovascular: Regular rate Lungs: Clear bilaterally Abdomen: Soft Extremities: Dry NE: The patient was alert and oriented. Language was normal. Fund of knowledge was normal. Pupils were equal and reactive to light. There was no afferent pupillary defect. Visual cross were normal. Funduscopic examination was limited. Extra-ocular movements were full. Ptosis was absent. There was no nystagmus. Facial sensation was normal. Face was symmetric with normal strength. Hearing was intact. Palate movements were normal. Neck strength was normal. There was normal tongue bulk and speed of movement. Tone was normal. Muscle bulk was normal. I did not see fasciculations. arms and legs were strong and symmetric Vibration sensation was symmetric.. Temperature and pinprick sensation was normal. Rapid alternating movements were normal. There was no dysmetria. There was no intention tremor. Gait was deferred due to bedrest. Arm and leg reflexes were symmetric. Gambino's sign was absent. Plantar responses were flexor. JAYMIE BRIUZELA NP Aug 23, 2018 17:00 TIFFANIE SANTAMARIA Aug 24, 2018 06:22
[2018-08-23] MEDS: ATORVASTATIN 80 MG TAB PO SCH (19:49)
--- NOTE | 2018-08-23 22:36 | DS ---
Date/Time of Note Date/Time of Note DATE: 08/23/18 TIME: 22:36 Discharge Summary Admission/Discharge Info Admit Date/Time Aug 21, 2018 at 04:01 Discharge Date/Time Aug 23, 2018 at 20:00 Discharge Diagnosis 1. Acute left thalamic lacunar infarct. 2. Dyslipidemia. 3. Pulmonary hypertension. 4. Chronic Nunez's palsy. 5. Nicotine use. Patient Condition: Stable Consults 1. Myrna Khan MD, Neurology. Procedures 2D Echocardiogram Conclusions: Normal left ventricular systolic function. Normal left ventricular cavity size. Mild asymmetric septal hypertrophy. Ejection fraction is visually estimated at 65 %. Tissue Doppler/Mitral Doppler indices are consistent with impaired relaxation (Stage I diastolic dysfunction). Mild mitral leaflet calcification. Mild mitral annular calcification. Trace mitral regurgitation. No significant aortic stenosis or insufficiency. Aortic cusps appear mildly calcified. Normal appearance of the tricuspid valve. Estimated peak PA systolic pressure 43 mmHg. There is mild tricuspid regurgitation. Brain MRI IMPRESSION: 1. Acute left thalamic lacunar infarct. 2. Mild chronic small vessel ischemic changes. Hx of Present Illness This is a 63-year-old female with comorbidities including nicotine use and dyslipidemia. The patient came to the emergency room with sudden onset of right upper extremity and right lower extremity paresthesias and heaviness. The patient was admitted to inpatient setting for further treatment and evaluation Hospital Course The patient's symptomatology was extensively evaluated. The patient's brain CT scan was negative for any acute findings. The patient underwent a brain MRI and that was negative for any major vessel involvement. The patient underwent a brain MRI that showed an acute left thalamic lacunar infarct. The patient was maintained on aspirin and statins. The patient was evaluated by physical therapy and occupational therapy. Neurology was following the patient. The patient has chronic right-sided Nuenz's palsy that remains stable. The patient is also a current nicotine user. The patient was provided with a nicotine patch. Upon discharge, the patient will be provided with a tapering dose of nicotine patch. The patient was also noticed to have dyslipidemia. The patient was already on statins. The patient's 2D echocardiogram showed preserved left ventricle ejection fraction. The patient's 2D echocardiogram also revealed a PA systolic pressure of 43 mmHg indicating mild pulmonary hypertension. The patient had a stable hospital course. The patient is stable to be discharged home. Discharge Instructions 1. Take medications as per prescription. 2. Follow a low-cholesterol diet. 3. Abstain from using tobacco. 4. Follow-up with your primary care physician in 2 weeks. If you do not have a primary care physician, please call Dr. Tamir Veliz's office. 5. Please go to the nearest emergency room if you have any sudden onset focal weakness, speech disturbances, or any other unusual signs/symptoms. The patient verbalized understanding of her discharge instructions. At this time I would like to thank all the consultants for seeing the patient and providing clinical recommendations. The patient was seen in collaboration with Dr. Montoya. Home Meds Active Scripts Nicotine* (Nicotine* Patch) 7 mg/day Patch, 1 PATCH TD DAILY for 42 Days, PATCH Nicotine pacth 14 mg patch Q day X 6 weeks follwed by 7 mg patch Q day for 2 weeks. Prov:PAUL MURDOCK [employer]PECTOR 08/23/18 Atorvastatin* (Atorvastatin*) 80 Mg Tablet, 80 MG PO HS, #30 TAB Prov:PAUL MURDOCK [employer] 08/23/18 Aspirin (Aspirin) 81 Mg Chew, 81 MG PO DAILY, #30 TAB Prov:PAUL MURDOCK [employer]OR 08/23/18 Discontinued Scripts Amox Tr/Potassium Clavulanate (Amox Tr-K Clv 875-125 Mg Tab) 1 Tab Tablet, 1 TAB PO BID for 10 Days, TAB Prov:MONAE MANLEY PA-C 01/20/16 Follow-up Plan Tamir Veliz MD Specialty: Internal Medicine Office Address: [address] [place] [address] Office Primary Care Provider Not On Staff Doctor Time spent on discharge: > 30 minutes Pending Labs Laboratory Tests Test 08/23/18 05:22 08/23/18 17:47 White Blood Count 4.0 10^3/ul (4.8-10.8) Red Blood Count 4.35 10^6/ul (4.20-5.40) Hemoglobin 13.0 g/dl (12.0-16.0) Hematocrit 40.7 % (37.0-47.0) Mean Corpuscular Volume 93.6 fl (82.0-101.0) Mean Corpuscular Hemoglobin 29.9 pg (29.0-33.0) Mean Corpuscular Hemoglobin Concent 31.9 g/dl (32.0-37.0) Red Cell Distribution Width 12.2 % (11.5-14.5) Platelet Count 166 10^3/UL (140-415) Mean Platelet Volume 9.4 fl (7.4-10.4) Immature Granulocytes % 0.200 % (0.001-0.429) Neutrophils % 56.7 % (39.0-77.0) Lymphocytes % 27.9 % (15.0-51.0) Monocytes % 8.5 % (0.0-11.0) Eosinophils % 6.0 % (0.0-7.0) Basophils % 0.7 % (0.0-2.0) Nucleated Red Blood Cells % 0.0 /100WBC (0.0-0.0) Immature Granulocytes # 0.010 10^3/ul (0.0-0.031) Neutrophils # 2.3 10^3/ul (1.6-7.5) Lymphocytes # 1.1 10^3/ul (0.8-2.9) Monocytes # 0.3 10^3/ul (0.3-0.9) Eosinophils # 0.2 10^3/ul (0.0-0.5) Basophils # 0.0 10^3/ul (0.0-0.1) Nucleated Red Blood Cells # 0.0 10^3/ul (0.0-0.0) Sodium Level 139 mmol/L (135-144) Potassium Level 4.1 mmol/L (3.5-5.1) Chloride Level 104 mmol/L (97-110) Carbon Dioxide Level 30 mmol/L (21-31) Anion Gap 5 (5-13) Blood Urea Nitrogen 18 mg/dl (7-20) Creatinine 0.55 mg/dl (0.44-1.00) Est Glomerular Filtrat Rate mL/min > 60 mL/min (>60) Glucose Level 93 mg/dl (70-220) Calcium Level 9.3 mg/dl (8.4-10.2) Phosphorus Level 4.1 mg/dl (2.5-4.9) Magnesium Level 2.0 mg/dl (1.7-2.5) Erythrocyte Sedimentation Rate 5 mm/Hr (0-30) PAUL MURDOCK NP Aug 23, 2018 22:36
== END 2018-08-23 20:00 | disposition home or self-care (01) | DRG 66 ==
LOC: E/R 01:06 → 6WM 04:01
PROVIDERS: ADMIT Internal Medicine; ATTEND Internal Medicine
PROC: 3E0234Z Introduction of Serum, Toxoid and Vaccine into Muscle, Percutaneous Approach (ICD-10-PCS; principal; 2018-08-22)
DX: I63.81 Other cerebral infarction due to occlusion or stenosis of small artery (principal); J45.909 Unspecified asthma, uncomplicated; E78.5 Hyperlipidemia, unspecified; I83.10 Varicose veins of unspecified lower extremity with inflammation; G51.0 Bell's palsy; F17.210 Nicotine dependence, cigarettes, uncomplicated; I27.20 Pulmonary hypertension, unspecified; R20.2 Paresthesia of skin; Z82.3 Family history of stroke; Z23 Encounter for immunization
CPT/HCPCS: 36415; 70450; 70544; 70549; 70551; 71045; 80048; 80053; 80061; 80307; 82962; 83036; 83735; 84100; 84443; 84484; 85025; 85610; 85651; 85730; 86592; 90686; 92610; 93005; 93306; 97116; 97161; 97167; 97530; 97535; J1650; J2060; J7030